=== PATIENT | male | born 1960 | race Two or more races ===

== ENCOUNTER 2021-01-29 10:22 | Inpatient (IN) | payer MEDICARE, MEDICAID ==
[~2021-01-29] VITALS: Ht 180.3 cm; Wt 116.0 kg
[~2021-01-29 10:22] MED LIST: ACET500T43 PO; AMOX250C3 PO; ATOR20TA50 PO; B-CO1TAB33 PO; CLO01T PO; DOCU100C10 PO; HYDR-4296 PO; INS7030I SC; LEVO500T31 PO; PANT40TA2 PO; RIV15T PO; TORS20TA19 PO
[2021-01-29 10:59] LABS: Basophils # (auto) 0.1 10 ^3/uL (0-0.2); Basophils % (auto) 1.3 % (0.0-2.0); Eosinophils # (auto) 0.1 10 ^3/uL (0-0.8); Eosinophils % (auto) 2.1 % (0.0-7.0); Hemoglobin 14.5 g/dL (13.5-17.5); Lymphocytes # (auto) 1.6 10 ^3/uL (0.4-5.4); Lymphocytes % (auto) 22.3 % (10.0-50.0); Mean Corpuscular Hemoglobin 31.1 pg (28.0-32.0); Mean Corpuscular Hgb Conc. 35.4 g/dL (32.0-36.0); Mean Corpuscular Volume 87.8 fL (80.0-100.0); Monocytes # (auto) 0.7 10 ^3/uL (0-1.3); Monocytes % (auto) 9.4 % (0.0-12.0); Neutrophils # (auto) 4.6 10 ^3/uL (1.6-8.6); Neutrophils % (auto) 64.9 % (37.0-80.0); Nucleated Red Blood Cells % 0.2 %; Platelet Count (auto) 128 10^3/uL (140-450); Red Blood Cells 4.67 10^6/uL (4.5-5.90); Red Cell Distribution Width 13.7 % (11.8-14.3); White Blood Cell 7.1 10^3/uL (4.4-10.8)
[2021-01-29] MEDS: SODIUM CHLORIDE 0.9% 1,000 ML IV SCH (11:00)
[2021-01-29] MEDS ORDERED: DEXTROSE (50%) 50ML SYRG IV PRN (11:00)
[2021-01-29] MEDS ORDERED: SODIUM CHLORIDE 0.9% 500 ML IV ONE (11:00)
[2021-01-29] MEDS ORDERED: ONDANSETRON HCL 4 MG/2 ML VIAL IV ONE (11:00)
[2021-01-29] MEDS ORDERED: ACETAMINOPHEN 500 MG TAB PO PRN ×2 (11:00→11:45)
[2021-01-29] MEDS ORDERED: MORPHINE SULFATE 4 MG/ML SYR/VIAL IV ONE (11:00)
[2021-01-29 11:14] LABS: Albumin 3.2 g/dL (3.4-5.0); Calcium 7.9 mg/dL (8.5-10.1); Potassium 4.8 mmol/L (3.5-5.1)
[2021-01-29 11:18] LABS: BUN/Creatinine Ratio 13.9; Bilirubin, Total 0.8 mg/dL (0.2-1.0); Total Protein 7.9 g/dL (6.4-8.2)
[2021-01-29 11:20] LABS: Magnesium 1.9 mg/dL (1.6-2.6)
[2021-01-29] MEDS ORDERED: InsuLIN REG 1unit/0.01ml Soln (100units/ml) SC SCH ×2 (11:30→22:00)
[2021-01-29] MEDS: ACCU-CHEK COMFORT CURVE STRIP VI SCH ×3 (11:30→22:00)
[2021-01-29] MEDS ORDERED: SOD CHL 0.45% 1,000 ML IV ONE (11:45)
[2021-01-29] MEDS ORDERED: MORPHINE SULF INJ 2 MG/ML SYRINGE 1ML IV PRN (11:45)
[2021-01-29] MEDS ORDERED: NITROGLYCERIN 0.4 MG SL TAB SL PRN (11:45)
[2021-01-29] MEDS: cefTAZidime 1 GM in SODIUM CHL 0.9% 50 ML IV SCH ×2 (14:00→22:26)
[2021-01-29] MEDS: VERAPAMIL HCL 40 MG TAB PO SCH ×2 (14:00→22:00)
[2021-01-29 15:26] LABS: INR 1.11 (0.9-1.15); Partial Thromboplastin Time 31.5 sec (23.0-31.2)
[2021-01-29] MEDS: INSULIN LISPRO (HUMAN) 100 UNITS/ML ML SC SCH ×2 (17:00→22:40)
[2021-01-29 17:16] VITALS: BP 120/60
[2021-01-29 17:24] VITALS: BP 120/60
[2021-01-29] MEDS: INSULIN LANTUS (GLARGINE) 1 /0.01ml (100units/ml) SC SCH (20:33)
[2021-01-29 21:15] LABS: Urine Bacteria FEW /hpf (None Seen); Urine Blood 1+ /uL (Negative); Urine Specific Gravity 1.017 (1.001-1.035); Urine WBC 152 /hpf (0 - 3); Urine WBC Clumps PRESENT /hpf (None Seen)
[2021-01-29 22:00] VITALS: BP 109/46
[2021-01-29] MEDS ORDERED: INSULIN 70/30 1unit/0.01ml Susp (100units/ml) SC SCH (22:00)
[2021-01-30] MEDS: SODIUM CHLORIDE 0.9% 1,000 ML IV SCH ×2 (03:40→14:09)
[2021-01-30] MEDS ORDERED: HYDROcodone-ACET 10/325MG TAB PO PRN (04:45)
[2021-01-30 05:00] VITALS: BP 134/70
[2021-01-30] MEDS: MORPHINE SULFATE 4 MG/ML SYR/VIAL IV PRN ×4 (05:00→20:08)
[2021-01-30] MEDS ORDERED: ACETAMINOPHEN 500 MG TAB PO PRN (05:00)
[2021-01-30] MEDS: VERAPAMIL HCL 40 MG TAB PO SCH ×3 (05:34→21:44)
[2021-01-30] MEDS: cefTAZidime 1 GM in SODIUM CHL 0.9% 50 ML IV SCH ×3 (05:34→21:45)
[2021-01-30 06:05] LABS: Basophils # (auto) 0 10 ^3/uL (0-0.2); Basophils % (auto) 0.3 % (0.0-2.0); Eosinophils # (auto) 0.2 10 ^3/uL (0-0.8); Eosinophils % (auto) 2.8 % (0.0-7.0); Hemoglobin 14.3 g/dL (13.5-17.5); Lymphocytes # (auto) 1.7 10 ^3/uL (0.4-5.4); Lymphocytes % (auto) 23.8 % (10.0-50.0); Mean Corpuscular Hemoglobin 31.3 pg (28.0-32.0); Mean Corpuscular Hgb Conc. 35.6 g/dL (32.0-36.0); Mean Corpuscular Volume 87.9 fL (80.0-100.0); Monocytes # (auto) 0.7 10 ^3/uL (0-1.3); Monocytes % (auto) 9.3 % (0.0-12.0); Neutrophils # (auto) 4.6 10 ^3/uL (1.6-8.6); Neutrophils % (auto) 63.8 % (37.0-80.0); Nucleated Red Blood Cells % 0.1 %; Platelet Count (auto) 119 10^3/uL (140-450); Red Blood Cells 4.55 10^6/uL (4.5-5.90); Red Cell Distribution Width 13.7 % (11.8-14.3); White Blood Cell 7.2 10^3/uL (4.4-10.8)
[2021-01-30] MEDS: INSULIN LISPRO (HUMAN) 100 UNITS/ML ML SC SCH ×4 (06:16→21:42)
[2021-01-30] MEDS: INSULIN LANTUS (GLARGINE) 1 /0.01ml (100units/ml) SC SCH ×2 (06:17→19:58)
[2021-01-30] MEDS: ACCU-CHEK COMFORT CURVE STRIP VI SCH ×4 (06:17→21:43)
[2021-01-30 06:20] LABS: Albumin 2.9 g/dL (3.4-5.0); Calcium 7.3 mg/dL (8.5-10.1); Potassium 4.8 mmol/L (3.5-5.1)
[2021-01-30 06:25] LABS: BUN/Creatinine Ratio 17.5; Bilirubin, Total 0.9 mg/dL (0.2-1.0); Total Protein 7.3 g/dL (6.4-8.2)
[2021-01-30 09:22] VITALS: BP 109/48
[2021-01-30] MEDS: LEVOTHYROXINE SODIUM 25 MCG TAB PO SCH (09:58)
[2021-01-30] MEDS ORDERED: LISINOPRIL 5 MG TAB PO SCH ×2 (10:00)
[2021-01-30 13:00] VITALS: BP 101/54
[2021-01-30 17:25] VITALS: BP 90/49
[2021-01-30 22:00] VITALS: BP 114/50
[2021-01-31] MEDS: MORPHINE SULFATE 4 MG/ML SYR/VIAL IV PRN ×4 (04:05→19:55)
[2021-01-31 05:00] VITALS: BP 110/58
[2021-01-31] MEDS: INSULIN LISPRO (HUMAN) 100 UNITS/ML ML SC SCH ×4 (06:05→22:10)
[2021-01-31] MEDS: ACCU-CHEK COMFORT CURVE STRIP VI SCH ×4 (06:06→22:06)
[2021-01-31] MEDS: INSULIN LANTUS (GLARGINE) 1 /0.01ml (100units/ml) SC SCH ×2 (06:08→19:54)
[2021-01-31] MEDS: cefTAZidime 1 GM in SODIUM CHL 0.9% 50 ML IV SCH ×3 (06:11→22:06)
[2021-01-31] MEDS: VERAPAMIL HCL 40 MG TAB PO SCH ×3 (06:11→22:07)
[2021-01-31 07:20] LABS: Potassium 4.7 mmol/L (3.5-5.1)
[2021-01-31 07:25] LABS: Calcium 6.6 mg/dL (8.5-10.1)
[2021-01-31 08:00] VITALS: BP 96/54
[2021-01-31 08:42] VITALS: BP 96/54
[2021-01-31] MEDS: LEVOTHYROXINE SODIUM 25 MCG TAB PO SCH (09:08)
[2021-01-31 13:00] VITALS: BP 114/56
[2021-01-31] MEDS: SODIUM CHLORIDE 0.9% 1,000 ML IV SCH ×2 (13:16→19:55)
[2021-01-31 17:00] VITALS: BP 94/53
[2021-01-31 22:00] VITALS: BP 110/62
[2021-02-01] MEDS: MORPHINE SULFATE 4 MG/ML SYR/VIAL IV PRN ×5 (01:11→23:53)
[2021-02-01 05:00] VITALS: BP 107/50
[2021-02-01] MEDS: INSULIN LISPRO (HUMAN) 100 UNITS/ML ML SC SCH ×4 (06:25→22:08)
[2021-02-01] MEDS: ACCU-CHEK COMFORT CURVE STRIP VI SCH ×4 (06:26→22:10)
[2021-02-01] MEDS: INSULIN LANTUS (GLARGINE) 1 /0.01ml (100units/ml) SC SCH ×2 (06:28→19:09)
[2021-02-01] MEDS: cefTAZidime 1 GM in SODIUM CHL 0.9% 50 ML IV SCH ×3 (06:30→22:13)
[2021-02-01] MEDS: VERAPAMIL HCL 40 MG TAB PO SCH ×3 (06:30→22:13)
[2021-02-01 07:15] LABS: Potassium 5.1 mmol/L (3.5-5.1)
[2021-02-01 07:23] LABS: Albumin 2.8 g/dL (3.4-5.0); BUN/Creatinine Ratio 17.2; Bilirubin, Total 1.1 mg/dL (0.2-1.0); Calcium 7.4 mg/dL (8.5-10.1); Total Protein 7.2 g/dL (6.4-8.2)
[2021-02-01] MEDS ORDERED: FUROSEMIDE 20 MG/2 ML VIAL IV ONE (07:30)
[2021-02-01 08:30] VITALS: BP 121/55
[2021-02-01] MEDS: LEVOTHYROXINE SODIUM 25 MCG TAB PO SCH (09:03)
[2021-02-01 12:30] VITALS: BP 138/66
[2021-02-01 17:00] VITALS: BP 137/76
[2021-02-01] MEDS: SODIUM CHLORIDE 0.9% 1,000 ML IV SCH (19:30)
[2021-02-01 20:00] VITALS: BP 107/50
[2021-02-01 22:00] VITALS: BP 134/60
[2021-02-01] MEDS ORDERED: AMPICILLIN INJ 1 GM in SODIUM CHL 0.9% 50 ML IV ONE (22:30)
[2021-02-02] MEDS ORDERED: AMPICILLIN SOD 1 GM VL ONE ×2 (00:09→00:13)
[2021-02-02] MEDS: AMPICILLIN INJ 1 GM in SODIUM CHL 0.9% 50 ML IV SCH ×5 (00:40→18:04)
[2021-02-02] MEDS: MORPHINE SULFATE 4 MG/ML SYR/VIAL IV PRN (04:40)
[2021-02-02 05:00] VITALS: BP 114/53
[2021-02-02] MEDS: INSULIN LISPRO (HUMAN) 100 UNITS/ML ML SC SCH ×4 (06:16→21:44)
[2021-02-02] MEDS: VERAPAMIL HCL 40 MG TAB PO SCH ×3 (06:29→21:45)
[2021-02-02] MEDS: INSULIN LANTUS (GLARGINE) 1 /0.01ml (100units/ml) SC SCH ×2 (06:29→18:44)
[2021-02-02] MEDS: ACCU-CHEK COMFORT CURVE STRIP VI SCH ×4 (06:32→21:34)
[2021-02-02 08:00] VITALS: BP 92/58
[2021-02-02] MEDS: cefTRIAXone 1GM/50ML D5W 50 ML IV SCH (08:10)
[2021-02-02] MEDS: LEVOTHYROXINE SODIUM 25 MCG TAB PO SCH (08:10)
[2021-02-02 12:00] VITALS: BP 103/57
[2021-02-02] MEDS ORDERED: FUROSEMIDE 20 MG/2 ML VIAL IV ONE (13:15)
[2021-02-02 16:00] VITALS: BP 117/68
[2021-02-02 22:00] VITALS: BP 121/66
[2021-02-03] MEDS: AMPICILLIN INJ 1 GM in SODIUM CHL 0.9% 50 ML IV SCH ×4 (02:42→18:45)
[2021-02-03 05:00] VITALS: BP 115/69
[2021-02-03] MEDS: VERAPAMIL HCL 40 MG TAB PO SCH ×2 (06:21→15:19)
[2021-02-03] MEDS: ACCU-CHEK COMFORT CURVE STRIP VI SCH ×3 (06:35→17:48)
[2021-02-03] MEDS: INSULIN LISPRO (HUMAN) 100 UNITS/ML ML SC SCH ×3 (06:35→17:00)
[2021-02-03] MEDS: INSULIN LANTUS (GLARGINE) 1 /0.01ml (100units/ml) SC SCH ×2 (06:36→18:46)
[2021-02-03 06:56] LABS: Basophils # (auto) 0.1 10 ^3/uL (0-0.2); Basophils % (auto) 0.9 % (0.0-2.0); Eosinophils # (auto) 0.4 10 ^3/uL (0-0.8); Eosinophils % (auto) 4.7 % (0.0-7.0); Hematocrit 38.3 % (41.0-53.0); Hemoglobin 13.5 g/dL (13.5-17.5); Lymphocytes # (auto) 1.7 10 ^3/uL (0.4-5.4); Lymphocytes % (auto) 20.6 % (10.0-50.0); Mean Corpuscular Hemoglobin 31.1 pg (28.0-32.0); Mean Corpuscular Hgb Conc. 35.3 g/dL (32.0-36.0); Mean Corpuscular Volume 88.1 fL (80.0-100.0); Monocytes # (auto) 0.7 10 ^3/uL (0-1.3); Monocytes % (auto) 9.1 % (0.0-12.0); Neutrophils # (auto) 5.3 10 ^3/uL (1.6-8.6); Neutrophils % (auto) 64.7 % (37.0-80.0); Platelet Count (auto) 115 10^3/uL (140-450); Red Blood Cells 4.35 10^6/uL (4.5-5.90); Red Cell Distribution Width 13.6 % (11.8-14.3); White Blood Cell 8.1 10^3/uL (4.4-10.8)
[2021-02-03 07:53] LABS: Potassium 4.1 mmol/L (3.5-5.1)
[2021-02-03 08:01] LABS: Albumin 2.7 g/dL (3.4-5.0); Bilirubin, Total 0.6 mg/dL (0.2-1.0); Calcium 7.3 mg/dL (8.5-10.1); Magnesium 1.8 mg/dL (1.6-2.6); Total Protein 7.3 g/dL (6.4-8.2)
[2021-02-03 08:30] VITALS: BP 103/58
[2021-02-03] MEDS: cefTRIAXone 1GM/50ML D5W 50 ML IV SCH (09:40)
[2021-02-03] MEDS: LEVOTHYROXINE SODIUM 25 MCG TAB PO SCH (09:40)
[2021-02-03 12:30] VITALS: BP 110/70
[2021-02-03 17:00] VITALS: BP 109/59
[2021-02-03] MEDS ORDERED: TORS20TA19 PO (18:53)
[2021-02-03] MEDS ORDERED: INS7030I SC (18:53)
[2021-02-03] MEDS ORDERED: AMOX250C3 PO ×2 (18:53→18:55)
[2021-02-03] MEDS ORDERED: VER40T PO ×2 (18:53→18:55)
[2021-02-03 20:02] VITALS: BP 109/59
[2021-02-03 20:51] VITALS: BP 109/59
== END 2021-02-03 20:58 | disposition home or self-care (01) | DRG 871 ==
LOC: ER 10:22 → TELE 11:33 → TELE-EAST 15:48
PROVIDERS: ADMIT Specialist; ATTEND Specialist
DX: A41.9 Sepsis, unspecified organism (principal); I26.09 Other pulmonary embolism with acute cor pulmonale; N10 Acute pyelonephritis; E66.2 Morbid (severe) obesity with alveolar hypoventilation; E87.1 Hypo-osmolality and hyponatremia; N17.9 Acute kidney failure, unspecified; D84.9 Immunodeficiency, unspecified; G82.20 Paraplegia, unspecified; T83.510A Infection and inflammatory reaction due to cystostomy catheter, initial encounter; B96.5 Pseudomonas (aeruginosa) (mallei) (pseudomallei) as the cause of diseases classified elsewhere; E11.65 Type 2 diabetes mellitus with hyperglycemia; I48.91 Unspecified atrial fibrillation; N18.9 Chronic kidney disease, unspecified; B96.4 Proteus (mirabilis) (morganii) as the cause of diseases classified elsewhere; Z68.33 Body mass index [BMI] 33.0-33.9, adult; E11.22 Type 2 diabetes mellitus with diabetic chronic kidney disease; E88.81 Metabolic syndrome and other insulin resistance; I12.9 Hypertensive chronic kidney disease with stage 1 through stage 4 chronic kidney disease, or unspecified chronic kidney disease; J45.909 Unspecified asthma, uncomplicated; Z87.440 Personal history of urinary (tract) infections; Z90.5 Acquired absence of kidney; Z91.11 Patient's noncompliance with dietary regimen; Z91.14 Patient's other noncompliance with medication regimen; Z93.3 Colostomy status; K21.9 Gastro-esophageal reflux disease without esophagitis; F32.9 Major depressive disorder, single episode, unspecified; D50.9 Iron deficiency anemia, unspecified; Z20.822 Contact with and (suspected) exposure to COVID-19; B95.2 Enterococcus as the cause of diseases classified elsewhere; Z79.899 Other long term (current) drug therapy; L89.312 Pressure ulcer of right buttock, stage 2; Z79.4 Long term (current) use of insulin; E86.1 Hypovolemia; Y84.6 Urinary catheterization as the cause of abnormal reaction of the patient, or of later complication, without mention of misadventure at the time of the procedure
CPT/HCPCS: 36415; 71045; 74176; 80048; 80053; 80061; 81001; 82962; 83036; 83605; 83615; 83735; 84443; 84484; 85025; 85049; 85610; 85730; 87040; 87077; 87086; 87088; 87186; 87205; 87426; 96374; 96375; G0378; J0696; J1815; J2405

== ENCOUNTER 2022-11-03 18:19 | Inpatient (IN) | payer MEDICARE, MEDICAID ==
[~2022-11-03] VITALS: Ht 180.3 cm; Wt 113.3 kg
[~2022-11-03 18:19] MED LIST changes: -LEVO500T31 PO; +VER40T PO
[2022-11-03] MEDS ORDERED: HYDROmorphone HCL 2 MG/ML VL/or syr IM ONE (19:45)
[2022-11-03 20:05] LABS: Urine Bacteria FEW /hpf (None Seen); Urine Blood Negative /uL (Negative); Urine Specific Gravity 1.005 (1.001-1.035); Urine WBC 1 /hpf (0 - 3)
[2022-11-03 20:16] LABS: Basophils # (auto) 0.1 10 ^3/uL (0-0.2); Eosinophils # (auto) 0.1 10 ^3/uL (0-0.8); Eosinophils % (auto) 1.3 % (0.0-7.0); Hematocrit 35.3 % (41.0-53.0); Hemoglobin 12.4 g/dL (13.5-17.5); Lymphocytes # (auto) 1.4 10 ^3/uL (0.4-5.4); Mean Corpuscular Hemoglobin 29.2 pg (28.0-32.0); Mean Corpuscular Volume 83.5 fL (80.0-100.0); Monocytes # (auto) 0.8 10 ^3/uL (0-1.3); Monocytes % (auto) 9.6 % (0.0-12.0); Neutrophils % (auto) 71.1 % (37.0-80.0); Nucleated Red Blood Cells % 0.8 %; Red Blood Cells 4.22 10^6/uL (4.5-5.90); Red Cell Distribution Width 14.3 % (11.8-14.3); White Blood Cell 8.4 10^3/uL (4.4-10.8)
[2022-11-03 20:31] LABS: Albumin 3.3 g/dL (3.4-5.0); BUN/Creatinine Ratio 16.8 (10.0-20.0); Calcium 8.9 mg/dL (8.5-10.1); Magnesium 1.8 mg/dL (1.6-2.6); Potassium 4.7 mmol/L (3.5-5.1)
[2022-11-03 20:45] LABS: Bilirubin, Total 0.8 mg/dL (0.2-1.0); Total Protein 8.6 g/dL (6.4-8.2)
[2022-11-03] MEDS ORDERED: SODIUM CHLORIDE 0.9% 2,000 ML IV ONE (21:45)
[2022-11-03] MEDS ORDERED: AZITHROMYCIN 500MG/ 250ML 250 ML IV ONE (22:00)
[2022-11-03] MEDS ORDERED: IOHEXOL 300 MG/ML 100ML BOTTLE IJ ONE (22:43)
[2022-11-03] MEDS ORDERED: MORPHINE SULFATE INJ 2 MG/ml SYRG IV PRN (23:00)
[2022-11-03] MEDS ORDERED: NITROGLYCERIN 0.4 MG SL TAB SL PRN (23:00)
[2022-11-04] MEDS ORDERED: clonazePAM 0.5 MG TAB PO PRN ×2 (01:00)
[2022-11-04] MEDS: SODIUM CHLORIDE 0.9% 1,000 ML IV SCH ×2 (01:54→18:45)
[2022-11-04] MEDS: cefTAZidime 1 GM in SODIUM CHL 0.9% 50 ML IV SCH ×4 (06:00→21:35)
[2022-11-04] MEDS: InsuLIN REG 1unit/0.01ml Soln (100units/ml) SC SCH ×4 (06:42→21:39)
[2022-11-04] MEDS: hydrALAZINE HCL 25 MG TAB PO SCH ×3 (06:42→21:39)
[2022-11-04] MEDS: ACCU-CHEK COMFORT CURVE STRIP VI SCH ×3 (06:42→18:45)
[2022-11-04] MEDS: dilTIAZem HCL 60 MG TAB PO SCH ×3 (06:42→21:40)
[2022-11-04] MEDS: HYDROmorphone HCL 2 MG/ML VL/or syr IV PRN ×3 (06:43→18:59)
[2022-11-04] MEDS: ONDANSETRON HCL 4 MG/2 ML VIAL IV PRN ×3 (06:59→18:59)
[2022-11-04] MEDS: ACETAMINOPHEN 325 MG TAB PO PRN (08:53)
[2022-11-04 09:00] VITALS: BP 107/54
[2022-11-04 13:00] VITALS: BP 101/52
[2022-11-04 17:00] VITALS: BP 92/53
[2022-11-04] MEDS: RIVAROXABAN 15 MG TAB PO SCH (18:58)
[2022-11-04] MEDS: ATORVASTATIN 20 MG TAB PO SCH (21:34)
[2022-11-04 22:00] VITALS: BP 124/59
[2022-11-05] MEDS: ACCU-CHEK COMFORT CURVE STRIP VI SCH ×4 (00:07→16:44)
[2022-11-05] MEDS ORDERED: FLEET ENEMA(ADULT) 135 ML PR ONE (00:15)
[2022-11-05] MEDS ORDERED: SODIUM CHL 3% IV ONE (00:15)
[2022-11-05] MEDS ORDERED: LORazepam 2MG/ML-1ML VIAL IV PRN (00:15)
[2022-11-05] MEDS: HYDROmorphone HCL 2 MG/ML VL/or syr IV PRN ×3 (01:14→22:13)
[2022-11-05] MEDS: ONDANSETRON HCL 4 MG/2 ML VIAL IV PRN ×4 (01:15→22:11)
[2022-11-05 05:00] VITALS: BP 126/65
[2022-11-05] MEDS: dilTIAZem HCL 60 MG TAB PO SCH ×3 (06:00→23:39)
[2022-11-05] MEDS: hydrALAZINE HCL 25 MG TAB PO SCH ×3 (06:00→23:40)
[2022-11-05] MEDS: cefTAZidime 1 GM in SODIUM CHL 0.9% 50 ML IV SCH ×4 (06:02→22:12)
[2022-11-05] MEDS: InsuLIN REG 1unit/0.01ml Soln (100units/ml) SC SCH ×4 (06:15→22:21)
[2022-11-05 06:22] LABS: Albumin 2.8 g/dL (3.4-5.0); Calcium 7.9 mg/dL (8.5-10.1); Potassium 5.3 mmol/L (3.5-5.1)
[2022-11-05 06:27] LABS: Bilirubin, Total 0.9 mg/dL (0.2-1.0); Total Protein 7.5 g/dL (6.4-8.2)
[2022-11-05 09:16] VITALS: BP 139/74
[2022-11-05 11:41] VITALS: BP 98/50
[2022-11-05 14:10] LABS: Basophils # (auto) 0.1 10 ^3/uL (0-0.2); Basophils % (auto) 1.8 % (0.0-2.0); Eosinophils # (auto) 0.1 10 ^3/uL (0-0.8); Hematocrit 32.1 % (41.0-53.0); Hemoglobin 11.1 g/dL (13.5-17.5); Lymphocytes # (auto) 1.5 10 ^3/uL (0.4-5.4); Mean Corpuscular Hgb Conc. 34.8 g/dL (32.0-36.0); Mean Corpuscular Volume 83.3 fL (80.0-100.0); Monocytes # (auto) 0.8 10 ^3/uL (0-1.3); Monocytes % (auto) 12.5 % (0.0-12.0); Neutrophils # (auto) 3.8 10 ^3/uL (1.6-8.6); Neutrophils % (auto) 59.7 % (37.0-80.0); Nucleated Red Blood Cells % 0.1 %; Red Blood Cells 3.85 10^6/uL (4.5-5.90); Red Cell Distribution Width 14.5 % (11.8-14.3); White Blood Cell 6.4 10^3/uL (4.4-10.8)
[2022-11-05 14:36] LABS: Potassium 5.3 mmol/L (3.5-5.1)
[2022-11-05 14:43] LABS: Albumin 2.7 g/dL (3.4-5.0); BUN/Creatinine Ratio 13.9 (10.0-20.0); Bilirubin, Total 0.7 mg/dL (0.2-1.0); Total Protein 7.2 g/dL (6.4-8.2)
[2022-11-05 17:00] VITALS: BP 128/61
[2022-11-05] MEDS: RIVAROXABAN 15 MG TAB PO SCH (18:15)
[2022-11-05] MEDS ORDERED: SODIUM CHL 3% 250 ML IV ONE (20:30)
[2022-11-05] MEDS ORDERED: FUROSEMIDE 20 MG/2 ML VIAL IV ONE (20:30)
[2022-11-05 22:00] VITALS: BP 125/62
[2022-11-05] MEDS: ATORVASTATIN 20 MG TAB PO SCH (22:13)
[2022-11-05] MEDS: LACTULOSE 20Gm/30ML SOLN PO PRN (23:35)
[2022-11-06] MEDS: ACCU-CHEK COMFORT CURVE STRIP VI SCH ×4 (00:31→17:58)
[2022-11-06] MEDS: ACETAMINOPHEN 325 MG TAB PO PRN (03:09)
[2022-11-06] MEDS: ONDANSETRON HCL 4 MG/2 ML VIAL IV PRN ×3 (04:56→17:40)
[2022-11-06] MEDS: HYDROmorphone HCL 2 MG/ML VL/or syr IV PRN ×3 (04:57→17:41)
[2022-11-06 05:00] VITALS: BP 122/58
[2022-11-06] MEDS: dilTIAZem HCL 60 MG TAB PO SCH ×4 (06:00→22:56)
[2022-11-06] MEDS: hydrALAZINE HCL 25 MG TAB PO SCH ×4 (06:00→22:55)
[2022-11-06] MEDS: LACTULOSE 20Gm/30ML SOLN PO PRN ×2 (06:08→21:26)
[2022-11-06] MEDS: cefTAZidime 1 GM in SODIUM CHL 0.9% 50 ML IV SCH ×3 (06:08→21:23)
[2022-11-06] MEDS: InsuLIN REG 1unit/0.01ml Soln (100units/ml) SC SCH ×4 (06:18→21:35)
[2022-11-06] MEDS: Nepro With Carbsteady Vanilla 8oz Carton PO SCH ×2 (08:00→17:58)
[2022-11-06 09:51] VITALS: BP 119/62
[2022-11-06 10:32] LABS: Albumin 2.7 g/dL (3.4-5.0); Calcium 8.2 mg/dL (8.5-10.1); Potassium 5.1 mmol/L (3.5-5.1)
[2022-11-06 10:35] LABS: BUN/Creatinine Ratio 12.2 (10.0-20.0); Bilirubin, Total 0.5 mg/dL (0.2-1.0); Total Protein 7.2 g/dL (6.4-8.2)
[2022-11-06] MEDS ORDERED: SODIUM ZIRCONIUM CYCL 10 GM PAK PO ONE (11:30)
[2022-11-06] MEDS ORDERED: SODIUM CHLORIDE 0.9% 1,000 ML IV SCH (13:00)
[2022-11-06 13:12] VITALS: BP 122/68
[2022-11-06 17:39] VITALS: BP 149/78
[2022-11-06] MEDS: RIVAROXABAN 15 MG TAB PO SCH (17:58)
[2022-11-06] MEDS: ATORVASTATIN 20 MG TAB PO SCH (21:26)
[2022-11-06 22:00] VITALS: BP 120/62
[2022-11-07] MEDS: SODIUM CHL 0.9% 250 ML IV SCH ×2 (00:09→23:32)
[2022-11-07] MEDS: ACCU-CHEK COMFORT CURVE STRIP VI SCH ×5 (00:10→23:45)
[2022-11-07] MEDS: ONDANSETRON HCL 4 MG/2 ML VIAL IV PRN ×3 (00:11→18:49)
[2022-11-07] MEDS: HYDROmorphone HCL 2 MG/ML VL/or syr IV PRN ×4 (00:12→18:49)
[2022-11-07 05:00] VITALS: BP 129/68
[2022-11-07] MEDS: cefTAZidime 1 GM in SODIUM CHL 0.9% 50 ML IV SCH (06:04)
[2022-11-07 06:37] LABS: Basophils # (auto) 0.2 10 ^3/uL (0-0.2); Eosinophils # (auto) 0.1 10 ^3/uL (0-0.8); Eosinophils % (auto) 1.2 % (0.0-7.0); Hematocrit 32.8 % (41.0-53.0); Hemoglobin 11.4 g/dL (13.5-17.5); Lymphocytes # (auto) 1.3 10 ^3/uL (0.4-5.4); Lymphocytes % (auto) 22.2 % (10.0-50.0); Mean Corpuscular Hemoglobin 28.7 pg (28.0-32.0); Mean Corpuscular Hgb Conc. 34.7 g/dL (32.0-36.0); Mean Corpuscular Volume 82.9 fL (80.0-100.0); Monocytes # (auto) 0.6 10 ^3/uL (0-1.3); Monocytes % (auto) 9.3 % (0.0-12.0); Neutrophils # (auto) 3.9 10 ^3/uL (1.6-8.6); Neutrophils % (auto) 64.3 % (37.0-80.0); Nucleated Red Blood Cells % 0.2 %; Red Blood Cells 3.95 10^6/uL (4.5-5.90); Red Cell Distribution Width 14.9 % (11.8-14.3)
[2022-11-07] MEDS: hydrALAZINE HCL 25 MG TAB PO SCH ×3 (07:00→22:10)
[2022-11-07] MEDS: dilTIAZem HCL 60 MG TAB PO SCH ×3 (07:01→22:11)
[2022-11-07] MEDS: InsuLIN REG 1unit/0.01ml Soln (100units/ml) SC SCH ×4 (07:03→22:12)
[2022-11-07 07:07] LABS: Potassium 5.3 mmol/L (3.5-5.1)
[2022-11-07 07:14] LABS: Albumin 2.6 g/dL (3.4-5.0); BUN/Creatinine Ratio 12.2 (10.0-20.0); Bilirubin, Total 0.5 mg/dL (0.2-1.0); Calcium 8.3 mg/dL (8.5-10.1); Total Protein 7.4 g/dL (6.4-8.2)
[2022-11-07] MEDS: Nepro With Carbsteady Vanilla 8oz Carton PO SCH ×2 (08:00→17:55)
[2022-11-07 09:00] VITALS: BP 144/55
[2022-11-07 13:00] VITALS: BP 124/60
[2022-11-07] MEDS: AMPICILLIN INJ 1 GM in SODIUM CHL 0.9% 100 ML IV SCH ×2 (16:27→22:08)
[2022-11-07 16:45] VITALS: BP 102/50
[2022-11-07] MEDS: RIVAROXABAN 15 MG TAB PO SCH (17:14)
[2022-11-07 22:02] VITALS: BP 130/71
[2022-11-07] MEDS: ATORVASTATIN 20 MG TAB PO SCH (22:11)
[2022-11-07] MEDS ORDERED: [UNRECOGNIZED DRUG - OTHER] PO ONE (22:45)
[2022-11-07] MEDS: ACETAMINOPHEN 325 MG TAB PO PRN (23:31)
[2022-11-08] MEDS: HYDROmorphone HCL 2 MG/ML VL/or syr IV PRN ×3 (01:17→13:35)
[2022-11-08] MEDS: ONDANSETRON HCL 4 MG/2 ML VIAL IV PRN ×2 (01:17→07:26)
[2022-11-08] MEDS: AMPICILLIN INJ 1 GM in SODIUM CHL 0.9% 100 ML IV SCH ×3 (06:11→14:49)
[2022-11-08] MEDS: hydrALAZINE HCL 25 MG TAB PO SCH ×2 (06:12→14:00)
[2022-11-08] MEDS: dilTIAZem HCL 60 MG TAB PO SCH ×2 (06:12→14:00)
[2022-11-08] MEDS: InsuLIN REG 1unit/0.01ml Soln (100units/ml) SC SCH ×3 (06:13→17:25)
[2022-11-08] MEDS: ACCU-CHEK COMFORT CURVE STRIP VI SCH ×3 (06:13→17:25)
[2022-11-08 06:29] LABS: Albumin 2.6 g/dL (3.4-5.0); Calcium 8.2 mg/dL (8.5-10.1); Potassium 5.1 mmol/L (3.5-5.1)
[2022-11-08 07:16] LABS: BUN/Creatinine Ratio 12.2 (10.0-20.0); Bilirubin, Total 0.5 mg/dL (0.2-1.0); Total Protein 7.3 g/dL (6.4-8.2)
[2022-11-08 08:00] VITALS: BP 106/53
[2022-11-08] MEDS: Nepro With Carbsteady Vanilla 8oz Carton PO SCH ×2 (10:55→17:25)
[2022-11-08] MEDS ORDERED: SODIUM ZIRCONIUM CYCL 10 GM PAK PO ONE (11:45)
[2022-11-08 13:00] VITALS: BP 128/64
[2022-11-08] MEDS: LACTULOSE 20Gm/30ML SOLN PO PRN (14:49)
[2022-11-08 16:10] VITALS: BP 112/61
[2022-11-08 17:00] VITALS: BP 104/58
[2022-11-08] MEDS: RIVAROXABAN 15 MG TAB PO SCH (17:30)
[2022-11-08 18:17] LABS: Calcium 8.6 mg/dL (8.5-10.1); Potassium 4.9 mmol/L (3.5-5.1)
== END 2022-11-08 19:42 | disposition home or self-care (01) | DRG 690 ==
LOC: ER 18:19 → TELE 22:56 → TELE-WESTW 11-04 07:47
PROVIDERS: ADMIT Internal Medicine Infectious Disease; ATTEND Internal Medicine Infectious Disease
DX: N39.0 Urinary tract infection, site not specified (principal); E87.1 Hypo-osmolality and hyponatremia; E11.9 Type 2 diabetes mellitus without complications; I10 Essential (primary) hypertension; B95.2 Enterococcus as the cause of diseases classified elsewhere; R77.9 Abnormality of plasma protein, unspecified; E87.5 Hyperkalemia; I48.91 Unspecified atrial fibrillation; Z83.3 Family history of diabetes mellitus; Z82.49 Family history of ischemic heart disease and other diseases of the circulatory system
CPT/HCPCS: 36415; 71045; 74177; 80048; 80053; 81001; 82150; 82962; 83690; 83735; 83930; 83935; 85025; 87081; 87086; 87088; 87186; 87426; 93005; 96365; 96372; G0378; J1642; J1815; J2405